=== PATIENT | female | born 2005 | race Caucasian/White ===

== ENCOUNTER 2023-12-23 19:59 | Outpatient (CLI) | payer MEDICAID, SELFPAY ==
[2023-12-23 20:21] VITALS: PULSE 85; O2SAT 98
[2023-12-23 20:23] VITALS: BP 128/80; PULSE 94
[2023-12-23 20:44] VITALS: BMI 31.8
[2023-12-23 21:00] LABS: Color, Urine Yellow (Yellow); Glucose, Dipstick Normal (Normal); Ketone-Dipstick 5 mg/dl (Negative); Leukocyte Esterase-Dipstick 500 /ul (Negative); Nitrite-Dipstick Negative (Negative); Occult Blood-Urine 10 /ul (Negative); Protein-Dipstick 30 mg/dl (Negative); Urine Clarity Cloudy (Clear); Urine Urobilinogen 4 mg/dl (Normal); Urine pH 6.5 (5.0 - 8.0)
[2023-12-23 21:04] LABS: Urine Bilirubin Dipstick 1 mg/dL (Negative)
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
[2023-12-23 21:18] LABS: ROM Internal Control Test YES-OK TO RESULT pt. (Internal QC); ROM Patient Test Negative (Negative); Record Kit Lot#, ROM+ K1866
--- NOTE | 2023-12-23 21:22 | PCM.DC ---
Discharge Instructions Follow Up Care Test Results: Test results from this visit will be discussed in further detail at your follow-up appointment, if applicable. 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
[2023-12-23] MEDS: Lactated Ringers 1,000 ML 999 ML IV (22:07)
[2023-12-23] MEDS: Nitrofurantoin Macrocrystals 100 MG Capsule PO (22:07)
== END 2023-12-23 23:45 | disposition home or self-care (01) ==
LOC: WPOUT 20:19 → WP 20:19
PROVIDERS: Referring Provider Advanced Practice Midwife; Visit Provider Advanced Practice Midwife
DX: O23.43 Unspecified infection of urinary tract in pregnancy, third trimester (principal); O99.283 Endocrine, nutritional and metabolic diseases complicating pregnancy, third trimester; E86.0 Dehydration; Z3A.37 37 weeks gestation of pregnancy
CPT/HCPCS: 59025; 59050; 81002; 84112; 87086; 87088; 99221; J7120; G0378

== ENCOUNTER → 2024-01-08 | Outpatient (CLI) | payer MEDICAID, SELFPAY | END | disposition home or self-care (01) | LOC: LAB 11:38 | PROVIDERS: Referring Provider Obstetrics & Gynecology; Visit Provider Obstetrics & Gynecology | DX: O09.93 Supervision of high risk pregnancy, unspecified, third trimester (principal); Z3A.39 39 weeks gestation of pregnancy | CPT/HCPCS: 36415; 86850; 86900; 86901 ==

== ENCOUNTER 2024-01-17 19:00 | Inpatient (IN) | payer MEDICAID, SELFPAY ==
[2024-01-17] VITALS (7 sets, daily range): BP systolic 120–135; BP diastolic 73–76; PULSE 80–100; RESP 17; TEMP 36.4; O2SAT 98–99; BMI 33.5
--- NOTE | 2024-01-17 20:21 | PCM.HP.OB ---
HPI - General General Date of Admission: 01/17/24 Date of Service: 01/17/24 Chief Complaint: induction HPI Narrative YESENIA GONZALEZ, is a 18 F who presents induction of labor at 41 weeks Maternal Data Information SAMANTHA Calculator Estimated Delivery Date Method Current WG Current Estimate 01/11/24 Manual 40w 6d Final SAMANTHA: 01/11/24 Gestational age: 40+6 PFSH PFSH Medical History no medical history Home Medications ?Medication ?Instructions ?Recorded ?Last Taken ?Type pvpjdnfc-kge-Cm-FA 1 mg 1 tab PO DAILY 12/23/23 01/16/24 02:00 History tablet ondansetron HCl 4 mg tablet 4 mg PO DAILY nausea 01/17/24 01/16/24 02:00 History Allergy/AdvReac Type Severity Reaction Status Date / Time acetaminophen AdvReac Mild Vomiting Verified 01/17/24 19:20 chocolate AdvReac Mild Vomiting Verified 01/17/24 19:20 coconut AdvReac Mild Vomiting Verified 01/17/24 19:20 Family History no significant family his Surgical History History of surgery Social History Smoking Status: Former smoker History 1 Elective abortions Hx Para 0 Spontaneous abortions Hx # Term Pregnancies Ectopic pregnancies Hx # Pregnancies Multiple births # of living children NST FHR Rate Baby A Baseline: 135 Variability:: Moderate Accelerations:: 15 x 15 Decelerations:: None NST Reactive:: Yes FHR Category:: Category I Uterine Activity:: none ROS Constitutional Constitutional: Denies fatigue, fever(s) or malaise Eyes Eyes: Denies change in vision ENT HEENT: Denies dizziness or headache(s) Cardiovascular Cardiovascular: Denies chest pain, dyspnea or lightheadedness Respiratory/Chest Respiratory/Chest: Denies cough or dyspnea Gastrointestinal Gastrointestinal: Denies change in bowel habits Genitourinary Genitourinary: Denies burning urination or genital lesions Integumentary Integumentary: Denies rash Neurologic Neurologic: Denies confusion, dizziness, headache(s), numbness or weakness Vital Signs Vital Signs Vital Signs: 01/17/24 19:39 01/17/24 19:39 01/17/24 19:44 Pulse Rate 95 95 Blood Pressure BP Systolic BP Diastolic Pulse Ox 99 01/17/24 19:44 01/17/24 19:49 01/17/24 19:49 Pulse Rate 100 Blood Pressure BP Systolic BP Diastolic Pulse Ox 98 99 01/17/24 19:51 01/17/24 19:51 Pulse Rate 90 Blood Pressure 120/73 BP Systolic 120 BP Diastolic 73 Pulse Ox Weight Weight: 83.092 kg Body Mass Index (BMI) 33.5 Physical Exam Const alert and no apparent distress General Appearance: cooperative HEENT normocephalic Resp normal respiratory effort GI soft to palpation GI Narrative: gravid, nontender, appropriate for gestational age Extremity no calf tenderness General Extremity: edema Skin no wounds Rashes: No rashes noted Psych activity/motor behavior normal Labs Labs Labs: Blood Type O POSITIVE Antibody Screen NEGATIVE Hct 37.0 % (37-47) Hgb 13.0 g/dL (12.0-15.0) Syphilis Total Ab Pending Assessment & Plan (1) Encounter for induction of labor: (2) 40 weeks gestation of : PLAN: Plan Contreras bulb and pit. Epidural prn GBS negative
[2024-01-17 20:29] LABS: Syphilis Antibodies Non-reactive
[2024-01-17] MEDS: Acetaminophen 500 MG Tablet PO (20:32)
[2024-01-17] MEDS: 0.9% Saline Lock 10 ML Syringe IV (20:33)
[2024-01-17 20:44] LABS: Absolute Lymphocyte Count 2.47 X10^3/uL (0.83-4.51); Absolute Neutrophil Count 7.7 X10^3/uL (2.0-7.7); Basophil# 0.04 X10^3/uL; Basophil% 0.4 % (0-1); Eosinophil# 0.11 X10^3/uL; Hemoglobin 12.8 g/dL (12.0-15.0); Lymphocyte # 2.47 X10^3/ul (0.83-4.51); Lymphocyte % 22.6 % (19-41); Mean Corp Hgb Conc 34.6 g/dL (32-36); Mean Corpuscular Hgb 31.4 pg (27.0-32.0); Mean Corpuscular Volume 90.7 fL (81-99); Mean Platelet Vol. 11.5 fl (6.2-12.0); Monocyte# 0.62 X10^3/uL; Monocyte% 5.7 % (0-10); NRBC Flagged by Analyzer 0 % (0-5); Neutrophil # 7.65 X10^3/uL (2.7-7.7); Neutrophil % 69.8 % (47-70); Platelet Count 207 K/mm3 (150-450); RBC Distribution Width CV 12.8 % (11.6-14.6); Red Blood Count 4.08 M/mm3 (4.2-5.4)
[2024-01-17 20:55] LABS: Amphetamine Urine VISTA NEGATIVE (<1000 ng/mL); Barbiturate Urine VISTA NEGATIVE (< 200 ng/mL); Benzodiazepine Urine VISTA NEGATIVE (< 200 ng/mL); Cocaine Urine VISTA NEGATIVE (< 300 ng/mL); Ecstacy Urine VISTA NEGATIVE (< 500 ng/mL); Methadone Urine VISTA NEGATIVE (< 300 ng/mL); Opiates Urine NEGATIVE (< 300 ng/mL); PCP Urine NEGATIVE (< 25 ng/mL); THC Urine VISTA NEGATIVE (< 50 ng/mL); Vista UDS pH Range 6
[2024-01-17] MEDS: 0.9% Normal Saline Single 100 ML IV.SOLN. INTRA-UTER (21:40)
--- NOTE | 2024-01-17 21:50 | PCM.PN.OB ---
Subjective Subjective Contreras bulb placed without difficulty. 1cm/80/-2 Soft Objective Data Objective Data Vital Signs: Vital Signs Temp Pulse Resp BP Pulse Ox 97.6 F L 90 17 120/73 99 01/17/24 20:10 01/17/24 19:51 01/17/24 20:10 01/17/24 19:51 01/17/24 19:49 Weight: 83.092 kg Body Mass Index (BMI) 33.5 Lab / Micro Data 01/17/24 20:30 Labs: Laboratory Results - last 24 hr 01/17/24 19:30: WBC 4.1 L, RBC 4.12 L, Hgb 13.0, Hct 37.0, MCV 89.8, MCH 31.6, MCHC 35.1, RDW Std Deviation 40.9, RDW Coeff of Sam 12.6, Plt Count 88 L, MPV 11.7, Immature Gran % (Auto) 0.200, Neut % (Auto) 75.1 H, Lymph % (Auto) 19.4, [place] % (Auto) 3.9, Eos % (Auto) 1.2, Baso % (Auto) 0.2, Absolute Neuts (auto) 3.1, Absolute Lymphs (auto) 0.80 L, Nucleated RBC % 0, Differential Comment SCANNED, Syphilis Total Ab Non-reactive 01/17/24 20:00: Urine Opiates Screen NEGATIVE, Urine Methadone Screen NEGATIVE, Ur Barbiturates Screen NEGATIVE, Ur Phencyclidine Scrn NEGATIVE, Ur Amphetamines Screen NEGATIVE, MDMA (Ecstasy) Screen NEGATIVE, U Benzodiazepines Scrn NEGATIVE, Urine Cocaine Screen NEGATIVE, U Cannabinoids Screen NEGATIVE, Ur Drug Screen Comment 01/17/24 20:30: WBC 11.0, RBC 4.08 L, Hgb 12.8, Hct 37.0, MCV 90.7, MCH 31.4, MCHC 34.6, RDW Std Deviation 42.0, RDW Coeff of Sam 12.8, Plt Count 207, MPV 11.5, Immature Gran % (Auto) 0.500, Neut % (Auto) 69.8, Lymph % (Auto) 22.6, [place] % (Auto) 5.7, Eos % (Auto) 1.0, Baso % (Auto) 0.4, Absolute Neuts (auto) 7.7, Absolute Lymphs (auto) 2.47, Nucleated RBC % 0 NST FHR Rate Baby A Baseline: 140 Variability:: Moderate Accelerations:: 15 x 15 Decelerations:: None NST Reactive:: Yes FHR Category:: Category I Uterine Activity:: quiet Assessment & Plan (1) 40 weeks gestation of : (2) Encounter for induction of labor: PLAN: Plan Epidural prn Pitocin planned
--- NOTE | 2024-01-17 22:16 | NURSING ---
Documented IV site again placed at 2030 to specify which arm IV was placed in.
[2024-01-17] MEDS: Oxytocin 15 Units/NS 250ml 15 UNITS/250 ML IV.SOLN 2 UNITS IV (23:47)
[2024-01-17] MEDS: Lactated Ringers 1,000 ML 999 ML IV (23:47)
[2024-01-18] VITALS (92 sets, daily range): BP systolic 90–146; BP diastolic 48–87; PULSE 72–123; RESP 14–18; TEMP 36.3–37.1; O2SAT 74–100
[2024-01-18] MEDS: fentaNYL-bupivacaine (epidural) 100 ML BAG EPIDURAL ×3 (00:43→09:29)
[2024-01-18] MEDS: Lactated Ringers 1,000 ML 200 ML IV ×3 (00:46→09:31)
[2024-01-18] MEDS: LACTATED RINGERS 500 ML 999 ML IV (01:59)
[2024-01-18] MEDS: 0.9% Saline Lock 10 ML Syringe IV ×2 (04:57→18:10)
[2024-01-18] MEDS: Ondansetron 4 MG/2 ML Vial IV (04:57)
--- NOTE | 2024-01-18 06:41 | NURSING ---
Reviewed and agreed with Amy MORELOS charting.
--- NOTE | 2024-01-18 07:26 | PCM.PN.OB ---
Subjective Subjective AROM for clear fluid. 3 cm/60/-3 IUPC and FSE placed. Epidural in and working. Objective Data Objective Data Vital Signs: Vital Signs Temp Pulse Resp BP Pulse Ox 98.4 F 74 17 115/64 100 01/18/24 06:30 01/18/24 06:54 01/18/24 06:30 01/18/24 06:54 01/18/24 06:30 Weight: 83.092 kg Body Mass Index (BMI) 33.5 Intake & Output: Intake and Output for Last 24 Hours 01/16/24 01/17/24 01/18/24 23:59 23:59 23:59 Intake Total 170 / 170 2004. / Output Total 300 / 300 200 / 200 Balance -130 / -130 1805.87 / 1805.87 Lab / Micro Data 01/17/24 20:30 Labs: Laboratory Results - last 24 hr 01/17/24 19:30: WBC Cancelled, Corrected WBC Cancelled, RBC Cancelled, Hgb Cancelled, Hct Cancelled, MCV Cancelled, MCH Cancelled, MCHC Cancelled, RDW Std Deviation Cancelled, RDW Coeff of Sam Cancelled, Plt Count Cancelled, MPV Cancelled, Immature Gran % (Auto) Cancelled, Neut % (Auto) Cancelled, Lymph % (Auto) Cancelled, [place] % (Auto) Cancelled, Eos % (Auto) Cancelled, Baso % (Auto) Cancelled, Absolute Neuts (auto) Cancelled, Absolute Lymphs (auto) Cancelled, Total Counted Cancelled, Neutrophils % (Manual) Cancelled, Band Neutrophils % Cancelled, Lymphocytes % (Manual) Cancelled, Monocytes % (Manual) Cancelled, Eosinophils % (Manual) Cancelled, Basophils % (Manual) Cancelled, Metamyelocytes % Cancelled, Myelocytes % Cancelled, Promyelocytes % Cancelled, Blast Cells % Cancelled, Plasma Cell % (Manual) Cancelled, Other Cells % Cancelled, Nucleated RBC % Cancelled, Nucleated RBCs/100 WBC Cancelled, Differential Comment Cancelled, Diff Path Review Cancelled, Hypersegmented Neuts Cancelled, Atypical Lymphocytes Cancelled, Reactive Lymphocytes Cancelled, Smudge Cells Cancelled, Toxic Granulation Cancelled, Toxic Vacuolation Cancelled, Dohle Bodies Cancelled, Sarah Rods Cancelled, Platelet Estimate Cancelled, Plt Morphology Comment Cancelled, RBC Morphology Cancelled 01/17/24 19:30: RBC Morphology Cancelled, Polychromasia Cancelled, Hypochromasia Cancelled, Basophilic Stippling Cancelled, Anisocytosis Cancelled, Microcytosis Cancelled, Macrocytosis Cancelled, Spherocytes Cancelled, Sickle Cells Cancelled, Target Cells Cancelled, Tear Drop Cells Cancelled, Ovalocytes Cancelled, Stomatocytes Cancelled, [place] Bodies Cancelled, Audrey Cells Cancelled, Bite Cells Cancelled, Crenated Cell Cancelled, Acanthocytes (Spur) Cancelled, Rouleaux Cancelled, Schistocytes Cancelled, Syphilis Total Ab Non-reactive, Blood Type O POSITIVE, Antibody Screen NEGATIVE 01/17/24 20:00: Urine Opiates Screen NEGATIVE, Urine Methadone Screen NEGATIVE, Ur Barbiturates Screen NEGATIVE, Ur Phencyclidine Scrn NEGATIVE, Ur Amphetamines Screen NEGATIVE, MDMA (Ecstasy) Screen NEGATIVE, U Benzodiazepines Scrn NEGATIVE, Urine Cocaine Screen NEGATIVE, U Cannabinoids Screen NEGATIVE, Ur Drug Screen Comment 01/17/24 20:30: WBC 11.0, RBC 4.08 L, Hgb 12.8, Hct 37.0, MCV 90.7, MCH 31.4, MCHC 34.6, RDW Std Deviation 42.0, RDW Coeff of Sam 12.8, Plt Count 207, MPV 11.5, Immature Gran % (Auto) 0.500, Neut % (Auto) 69.8, Lymph % (Auto) 22.6, [place] % (Auto) 5.7, Eos % (Auto) 1.0, Baso % (Auto) 0.4, Absolute Neuts (auto) 7.7, Absolute Lymphs (auto) 2.47, Nucleated RBC % 0 Assessment & Plan (1) 40 weeks gestation of : (2) Encounter for induction of labor: PLAN: Plan s/p oneill. Pitocin induction GBS negative Epidural in
--- NOTE | 2024-01-18 08:25 | NURSING ---
when talking with patient, she stated that she has had two under 10 week loses, making this her third
[2024-01-18] MEDS: Oxytocin 15 Units/NS 250ml 15 UNITS/250 ML IV.SOLN 83 UNITS IV (15:00)
[2024-01-18] MEDS: Ibuprofen 600 MG Tablet PO (15:40)
[2024-01-18] MEDS: Acetaminophen 500 MG Tablet 1000 MG PO (19:08)
[2024-01-18] MEDS: Benzocaine/Lanolin/Aloe Vera 85 GM Spray 1 SPRAY TOPICAL (19:09)
[2024-01-19 01:00] VITALS: BP 142/81; PULSE 93; RESP 16; TEMP 36.3; O2SAT 97
[2024-01-19] MEDS: Ibuprofen 600 MG Tablet PO ×3 (03:33→16:37)
[2024-01-19 04:10] VITALS: BP 144/84; PULSE 92; RESP 16; TEMP 36.6; O2SAT 98
[2024-01-19 04:32] LABS: Absolute Lymphocyte Count 2.53 X10^3/uL (0.83-4.51); Absolute Neutrophil Count 11.5 X10^3/uL (2.0-7.7); Basophil# 0.03 X10^3/uL; Basophil% 0.2 % (0-1); Eosinophil# 0.08 X10^3/uL; Eosinophils% 0.5 % (0-5); Hematocrit 30.9 % (37-47); Hemoglobin 10.5 g/dL (12.0-15.0); Lymphocyte # 2.53 X10^3/ul (0.83-4.51); Lymphocyte % 16.8 % (19-41); Mean Corpuscular Hgb 31.5 pg (27.0-32.0); Mean Corpuscular Volume 92.8 fL (81-99); Mean Platelet Vol. 11.2 fl (6.2-12.0); Monocyte# 0.81 X10^3/uL; Monocyte% 5.4 % (0-10); NRBC Flagged by Analyzer 0 % (0-5); Neutrophil # 11.53 X10^3/uL (2.7-7.7); Neutrophil % 76.6 % (47-70); Platelet Count 168 K/mm3 (150-450); RBC Distribution Width CV 13.1 % (11.6-14.6); RBC Distribution Width SD 44.1 fl (35.1-43.9); Red Blood Count 3.33 M/mm3 (4.2-5.4); White Blood Count 15.1 K/mm3 (4.4-11.0)
[2024-01-19] MEDS: Acetaminophen 500 MG Tablet 1000 MG PO ×2 (06:31→15:57)
[2024-01-19 08:38] VITALS: BP 125/80; PULSE 86; RESP 16; TEMP 36.3; O2SAT 97
[2024-01-19] MEDS: 0.9% Saline Lock 10 ML Syringe IV (10:10)
--- NOTE | 2024-01-19 12:23 | PCM.PN.OB ---
Subjective Subjective Denies complaints Objective Data Objective Data Vital Signs: Vital Signs Temp Pulse Resp BP Pulse Ox O2 Del Method 97.4 F L 86 16 125/80 H 97 Room Air 01/19/24 08:38 01/19/24 08:38 01/19/24 08:38 01/19/24 08:38 01/19/24 08:38 01/19/24 08:38 Oxygen Delivery Method Room Air Weight: 183 lb 3 oz Body Mass Index (BMI) 33.5 Intake & Output: Intake and Output for Last 24 Hours 01/17/24 01/18/24 01/19/24 23:59 23:59 23:59 Intake Total 170 / 170 4403.33 / 4403.33 Output Total 300 / 300 2950 / 2950 Balance -130 / -130 1453.33 / 1453.33 Lab / Micro Data 01/19/24 04:15 Labs: Laboratory Results - last 24 hr 01/19/24 04:15: WBC 15.1 H, RBC 3.33 L, Hgb 10.5 L, Hct 30.9 L, MCV 92.8, MCH 31.5, MCHC 34.0, RDW Std Deviation 44.1 H, RDW Coeff of Sam 13.1, Plt Count 168, MPV 11.2, Immature Gran % (Auto) 0.500, Neut % (Auto) 76.6 H, Lymph % (Auto) 16.8 L, [place] % (Auto) 5.4, Eos % (Auto) 0.5, Baso % (Auto) 0.2, Absolute Neuts (auto) 11.5 H, Absolute Lymphs (auto) 2.53, Nucleated RBC % 0 Physical Exam Const alert, oriented x3 and no apparent distress HEENT normocephalic GI soft to palpation, non-tender and non-distended GI Narrative: fundus firm, mid & below umbilicus Extremity normal to inspection and no calf tenderness Assessment & Plan (1) Vaginal delivery: COMMENT: PPD#1 PLAN: Routine care
[2024-01-19 13:02] VITALS: BP 133/81; PULSE 92; RESP 16; TEMP 36.4; O2SAT 98
[2024-01-19 16:00] VITALS: BP 139/90; PULSE 88; RESP 16; TEMP 36.4; O2SAT 97
[2024-01-19 20:02] VITALS: BP 144/90; PULSE 87; RESP 18; TEMP 36.4; O2SAT 99
[2024-01-20] MEDS: Acetaminophen 500 MG Tablet 1000 MG PO ×2 (01:19→14:10)
[2024-01-20] MEDS: Ibuprofen 600 MG Tablet PO ×3 (01:20→15:10)
[2024-01-20 01:22] VITALS: BP 130/72; PULSE 83; RESP 20; TEMP 37.1; O2SAT 98
[2024-01-20 08:28] VITALS: BP 129/74; PULSE 82; RESP 14; TEMP 36.8
--- NOTE | 2024-01-20 09:01 | PCM.PROGNOTE ---
Subjective Subjective patient seen at bedside, doing well. Patient reports good pain control. lochia mild. Objective Data Objective Data Vital Signs: Vital Signs Temp Pulse Resp BP Pulse Ox O2 Del Method 98.2 F 82 14 129/74 H 98 Room Air 01/20/24 08:28 01/20/24 08:28 01/20/24 08:28 01/20/24 08:28 01/20/24 01:22 01/20/24 08:28 Oxygen Delivery Method Room Air Weight: 83.092 kg Body Mass Index (BMI) 33.5 Intake & Output: Intake and Output for Last 24 Hours 01/18/24 01/19/24 01/20/24 23:59 23:59 23:59 Intake Total 4403.33 / 4403.33 Output Total 2950 / 2950 Balance 1453.33 / 1453.33 Lab / Micro Data 01/19/24 04:15 Physical Exam Const alert and oriented x3 General Appearance: cooperative HEENT normocephalic Neck General: normal visual inspection GI soft to palpation and non-distended GI Narrative: Fundus firm Extremity normal to inspection and no calf tenderness Skin no rashes or lesions noted Neuro oriented x3 and CN's II-XII intact bilaterally Psych mental status grossly normal Assessment & Plan Assessment/Plan (1) Vaginal delivery: (2) Drug use: PLAN: Plan PPD#2 , Doing well Routine care pain mgmt ambulation dc to [facility]
--- NOTE | 2024-01-20 09:02 | DCINST_ITS ---
Discharge Instructions Diet Discharge Diet: No restrictions Activity May resume sexual activity in: 6-8 weeks Dressing / Incision Call your doctor if you observe: Fever of 101 or Higher, Inability to urinate, Using more than 1 pad per hour and Uncontrolled pain Follow Up Care Please Follow Up With: Charisse Louise MD When: 1-2 weeks post and again at 6 weeks post . [phone] Test Results: Test results from this visit will be discussed in further detail at your follow- up appointment, if applicable. Discharge Plan Admission Admit Date/Time: 01/17/24 19:00 Attending Provider: Alexsandra Mendosa Primary Care Provider: Care PhysicianDeana Primary Discharge Orders/Prescriptions Prescriptions: New acetaminophen 500 mg Tablet 1,000 mg PO Q6H PRN PRN (Reason: Pain 1-10 Or Fever) Qty: 0 0RF ibuprofen 600 mg Tablet 600 mg PO Q6H PRN PRN (Reason: Pain Score 1-10) Qty: 0 0RF Continued oexozryz-emx-Zz-FA 1 mg tablet 1 tab PO DAILY Discontinued ondansetron HCl 4 mg tablet 4 mg PO DAILY Referrals / Follow Up: Care Physician,No Primary [Primary Care Provider] - Disposition Disposition (needs filled in before D/C Order can be placed): Home, Self Care
[2024-01-20 12:45] VITALS: BP 128/78; PULSE 68; RESP 18; TEMP 36.3; O2SAT 99
[2024-01-20 14:03] VITALS: BP 134/87; PULSE 76; RESP 16; TEMP 36.6; O2SAT 99
[2024-01-20] MEDS: Benzocaine/Lanolin/Aloe Vera 85 GM Spray 1 SPRAY TOPICAL (14:09)
--- NOTE | 2024-01-20 14:19 | NURSING ---
Pt. up walking around in room. Moans with ambulation. RN assessing pain and pt reports back ache which is constant and kind of crampy but rates 9/10. Using heating pad and took warm shower. Discussed stretches and change in position in room, encouraging sitting up in chair. Pt. states she is trying not to be up walking due to pedal swelling but instructed on sitting up in recliner with feet elevated. Support person at side and said he will help get patient comfortable in chair. Medicated for pain.
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
--- NOTE | 2024-01-20 15:24 | NURSING ---
student nurses charting reviewed that is used for educational and learning purposes.
--- NOTE | 2024-01-26 14:30 | EX.PCM.OBRPT ---
Assessment & Plan (1) Second degree perineal laceration: (2) Vaginal delivery: COMMENT: PPD#1 Maternal Data Information SAMANTHA Calculator Estimated Delivery Date Method Current WG Current Estimate 01/11/24 Manual 42w 1d 41 weeks Vaginal Delivery Maternal Presentation Maternal Presentation: Medically Indicated Induction Type of Induction: Pitocin and Contreras Bulb Operative Information Date of Procedure: 01/18/24 Pre-Operative Diagnosis: Induction of labor at 41 weeks Post-Operative Diagnosis: , 2nd degree perineal laceration Surgery / Procedure Performed: Spontaneous Vaginal Delivery Type of Anesthesia: Epidural Estimated Blood Loss: 350ml Time of Delivery: 14:25 Findings Description of Procedure: Progressed to complete with urge to push. Epidural for pain management. of viable male over 2nd degree perineal laceration. APGARS 9,9 respectively. head delivered with body immediately forthcoming. Placed on maternal abdomen, strong cry. Mouth and nares suctioned for secretions. Pitocin started for active 3rd stage management. Cord doubly clamped and cut by FOB after pulsations ceased, delayed cord clamping. Placenta delivered intact via santos, 3 vessel cord intact. Perineum inspected and revealed 2nd degree perineal laceration. Repaired with 3.0 vicryl rapide and epidural. Fundus firm and hemostasis achieved. EBL 350ml. Mom and baby stable, planning to breastfeed. Family bonding well. notified of delivery. Presentation: Vertex Amniotic Membrane Rupture Type: Artificial Amniotic Fluid Description: Clear Placental Delivery Description: Spontaneous Placenta Disposition: [facility] Cord Vessel Description: 3 Vessels Infant A Gender: Male (1 minute): 9 (5 minute): 9 Delayed Cord Clamping: Yes Post Vaginal Delivery Medications Given After Delivery: IV Pitocin Episiotomy Description: None Laceration: Perineal Extension/lac and 2nd degree Complication Complications: None
== END 2024-01-20 18:00 | disposition home or self-care (01) | DRG 560 ==
PROVIDERS: Obstetrics & Gynecology; Admitting Provider Advanced Practice Midwife; Visit Provider Advanced Practice Midwife
DX: O48.0 Post-term pregnancy (principal); Z37.0 Single live birth; O70.1 Second degree perineal laceration during delivery; Z3A.41 41 weeks gestation of pregnancy; Z87.891 Personal history of nicotine dependence
CPT/HCPCS: 59025; 59050; 80307; 85025; 86780; 86850; 86900; 86901; 96374; 99221; A4216; G0378; J2405